=== PATIENT | female | born 1950 | race Caucasian/White ===

== ENCOUNTER → 2024-05-25 14:28 | Outpatient (CLI) | payer MEDICARE, OTHER, SELFPAY ==
--- NOTE | 2024-05-25 14:30 | DI.US.S_ITS ---
PROCEDURE: US HERNIA INDICATIONS: RT INGUINAL SKIN MASS/LUMP - LIPOMA VS HERNIA TECHNIQUE: Real-time focused scanning was performed of the inguinal region, with image documentation. COMPARISON: None. FINDINGS: Right inguinal hernia with defect measuring 1.1 x 1.6 cm. The inguinal hernia contains fat and when the patient stands, peristalsing bowel enters into the hernia. Hernia contents measure approximately 3.8 x 1.6 x 2.2 cm. The hernia is non reducible. IMPRESSION: Non reducible right inguinal hernia containing fat and bowel. Dictated by: Michele Monge M.D. on 05/25/2024 at 17:38 Approved by: Michele Monge M.D. on 05/25/2024 at 17:40
== END ==
DX: R22.9 Localized swelling, mass and lump, unspecified (principal); K40.90 Unilateral inguinal hernia, without obstruction or gangrene, not specified as recurrent
CPT/HCPCS: 76705